=== PATIENT | female | born 1950 | race Asian ===

== ENCOUNTER 2017-08-28 07:42 | Day surgery (SDC) | payer MEDICARE, OTHER ==
[2017-08-28] MEDS ORDERED: PROPOFOL 40 ML (09:14)
== END 2017-08-28 11:30 | disposition home or self-care (01) ==
LOC: GIL 07:42
DX: Z12.11 Encounter for screening for malignant neoplasm of colon (principal); I10 Essential (primary) hypertension
CPT/HCPCS: G0121